=== PATIENT | female | born 1935 | race Caucasian/White ===

== ENCOUNTER 2018-01-20 21:39 | Inpatient (IN) | payer MEDICARE, OTHER ==
[~2018-01-20] VITALS: Ht 165.1 cm; Wt 63.5 kg
--- NOTE | ~2018-01-20 | CN ---
PATIENT NAME:CHIVO THOMPSON MEDICAL RECORD: [id number] : 37 LOCATION:[id number] ADMIT DATE: 01/20/18 ACCOUNT: [id number] CONSULTING PHYSICIAN: JOHNNIE KRISHNAMURTHY III, MD REFERRING PHYSICIAN: ELZBIETA MAYER MD DATE OF CONSULTATION: 01/23/2018 FINDINGS: An 82-year-old single white female admitted on the . The patient had acute urinary tract infection as well as altered mental status. The patient did have some dental work done approximately last week as well. She had some type of gingival infection, I believe. The patient has had workup for the urinary tract infection and is currently on antibiotics. However, the part did suffer an acute psychotic episode last night. She hallucinated visually (saw chickens in her room), became quite anxious and agitated. Prior to admission, the patient had begun showing cognitive changes according to a friend who was interviewed. The patient has been routinely misplacing things in her home. She has difficulty sometimes getting her car started and other similar problems. The patient does live by herself, which is a matter of some concern for the family. On exam today, the patient is very pleasant. She seems slightly anxious during the interview. Affect is generally well controlled. Speech tends to be a bit tangential. Content of thought is negative for acute psychosis at the moment, but the patient did have hallucinations last night as mentioned. She is oriented to person and place. She shows some deficits in terms of short term recall. Long-term recall is intact. DIAGNOSTIC IMPRESSION: AXIS I: Subacute delirium -- rule out early dementia. PLAN: 1. We will begin routine haloperidol 0.5 mg twice a day for control of acute psychosis. 2. Add Aricept 5 mg daily. 3. The patient at present is not inclined to be transferred to skilled nursing. However, we will remain open to the possibility if family persuades her to do so. TRANSINT:[id number] Voice Confirmation ID: [id number] DOCUMENT ID: [id number] JOHNNIE KRISHNAMURTHY III, MD at 0553 CC: [id number] DICTATION DATE: 01/23/18 1218 TARGETEER: 01/23/18 1225 [place] [address]
[~2018-01-20 21:39] MED LIST: ALEVE220 MG PO; BAYER CHEWABLE81 MG PO; CRESTOR20 MG PO; DETROL2 MG PO; REQUIP0.5 MG PO; SYNTHROID75 MCG PO
[2018-01-20 22:29] LABS: BASOPHILS 0.2 % (0-2); EOSINOPHILS 0.8 % (0-7); HEMATOCRIT 37.5 % (36.0-48.0); HEMOGLOBIN 12.5 g/dL (12-16); IMMATURE GRANULOCYTES 0.2 % (0-5); MCH 29.2 pg (26.0-34.0); MCHC 33.3 g/dL (31.0-37.0); MCV 87.6 fL (80.0-100.0); MEAN PLATELET VOLUME 11.5 fL (7.4-10.4); MONOCYTES 11.7 % (2-11); NEUTROPHILS 72.1 % (40-80); PLATELET COUNT 191 10x3/uL (130-400); RBC 4.28 10x6/uL (4.00-5.40); WBC 13.3 10x3/uL (4.8-10.8)
[2018-01-20 22:30] VITALS: BP 158/70
[2018-01-20 22:39] LABS: ALBUMIN 3.8 g/dL (3.4-5.0); BILIRUBIN - TOTAL 1.5 mg/dL (0.2-1.3); CARBON DIOXIDE 27.5 mmol/L (21.0-32.0); CREATININE - SERUM 1.1 mg/dL (0.6-1.3); POTASSIUM - SERUM 4.5 mmol/L (3.5-5.1); PROTEIN - SERUM 7.2 g/dL (6.4-8.2)
[2018-01-20 22:49] LABS: THYROID STIMULATING HORMONE 0.03 uIU/mL (0.36-3.74)
[2018-01-20 23:14] LABS: APPEARANCE CLEAR (CLEAR); BILIRUBIN NEGATIVE (NEGATIVE); COLOR YELLOW (YELLOW); GLUCOSE NEGATIVE (NEGATIVE); KETONE NEGATIVE (NEGATIVE); NITRITE NEGATIVE (NEGATIVE); PROTEIN NEGATIVE (NEGATIVE); SPECIFIC GRAVITY 1.015 (1.005-1.020); UROBILINOGEN NORMAL (NORMAL)
[2018-01-20 23:16] LABS: BACTERIA NONE SEEN /hpf (NONE SEEN); EPITHELIAL CELLS 0-5 /hpf (0-5); RED CELLS - URINE NONE SEEN /hpf (0-5); WHITE CELLS - URINE 0-5 /hpf (0-5)
[2018-01-20 23:18] LABS: UDS - AMPHET NEGATIVE QUAL (NEGATIVE); UDS - BARB NEGATIVE QUAL (NEGATIVE); UDS - BENZO NEGATIVE QUAL (NEGATIVE); UDS - COCAINE NEGATIVE QUAL (NEGATIVE); UDS - OPIATE NEGATIVE QUAL (NEGATIVE); UDS - PCP NEGATIVE QUAL (NEGATIVE); UDS - THC NEGATIVE QUAL (NEGATIVE)
[2018-01-20 23:35] VITALS: BP 169/70
[2018-01-20 23:56] LABS: T4 THYROXIN - FREE 0.99 ng/dL (0.76-1.46); T4 THYROXINE 8.2 ug/dL (4.7-13.3)
[2018-01-21] VITALS (8 sets, daily range): BP systolic 105–161; BP diastolic 43–99; Ht 165.1 cm; Wt 63.5 kg
[2018-01-21 11:08] LABS: BASOPHILS 0.2 % (0-2); EOSINOPHILS 1.5 % (0-7); HEMATOCRIT 38.3 % (36.0-48.0); HEMOGLOBIN 12.5 g/dL (12-16); IMMATURE GRANULOCYTES 0.1 % (0-5); LYMPHOCYTES 16.1 % (15-50); MCH 28.7 pg (26.0-34.0); MCHC 32.6 g/dL (31.0-37.0); MONOCYTES 10.7 % (2-11); NEUTROPHILS 71.4 % (40-80); PLATELET COUNT 158 10x3/uL (130-400); RBC 4.35 10x6/uL (4.00-5.40); WBC 11.1 10x3/uL (4.8-10.8)
[2018-01-21 11:38] LABS: ALBUMIN 3.3 g/dL (3.4-5.0); ANION GAP 11.2 mmol/L (8-16); BILIRUBIN - TOTAL 2.1 mg/dL (0.2-1.3); CALCIUM 8.6 mg/dL (8.5-10.1); CARBON DIOXIDE 26.5 mmol/L (21.0-32.0); CREATININE - SERUM 0.9 mg/dL (0.6-1.3); PROTEIN - SERUM 6.6 g/dL (6.4-8.2)
[2018-01-21 11:39] LABS: POTASSIUM - SERUM 3.7 mmol/L (3.5-5.1)
[2018-01-22 03:45] VITALS: BP 132/57
[2018-01-22 05:50] LABS: BASOPHILS 0.3 % (0-2); EOSINOPHILS 3.6 % (0-7); HEMATOCRIT 39.2 % (36.0-48.0); HEMOGLOBIN 12.9 g/dL (12-16); IMMATURE GRANULOCYTES 0.2 % (0-5); LYMPHOCYTES 28.2 % (15-50); MCHC 32.9 g/dL (31.0-37.0); MCV 88.1 fL (80.0-100.0); MEAN PLATELET VOLUME 12.3 fL (7.4-10.4); MONOCYTES 9.2 % (2-11); NEUTROPHILS 58.5 % (40-80); PLATELET COUNT 172 10x3/uL (130-400); RBC 4.45 10x6/uL (4.00-5.40); RDW 14.9 % (11.5-14.5); WBC 10.4 10x3/uL (4.8-10.8)
[2018-01-22 06:31] LABS: ALBUMIN 3.1 g/dL (3.4-5.0); ANION GAP 11.8 mmol/L (8-16); BILIRUBIN - TOTAL 1.42 mg/dL (0.2-1.3); CALCIUM 8.9 mg/dL (8.5-10.1); CARBON DIOXIDE 26.3 mmol/L (21.0-32.0); POTASSIUM - SERUM 4.1 mmol/L (3.5-5.1); PROTEIN - SERUM 6.7 g/dL (6.4-8.2)
[2018-01-22 08:52] VITALS: BP 114/57
[2018-01-22 12:22] VITALS: BP 122/84
[2018-01-22 15:51] VITALS: BP 145/84
[2018-01-22 20:00] VITALS: BP 1499/76
[2018-01-23 01:20] VITALS: BP 157/71
[2018-01-23 05:27] VITALS: BP 152/63
[2018-01-23 05:33] LABS: BASOPHILS 0.3 % (0-2); EOSINOPHILS 4.2 % (0-7); HEMATOCRIT 34.2 % (36.0-48.0); HEMOGLOBIN 11.4 g/dL (12-16); IMMATURE GRANULOCYTES 0.3 % (0-5); LYMPHOCYTES 24.2 % (15-50); MCH 28.6 pg (26.0-34.0); MCHC 33.3 g/dL (31.0-37.0); MEAN PLATELET VOLUME 11.7 fL (7.4-10.4); MONOCYTES 8.6 % (2-11); NEUTROPHILS 62.4 % (40-80); PLATELET COUNT 151 10x3/uL (130-400); RBC 3.99 10x6/uL (4.00-5.40); RDW 14.3 % (11.5-14.5)
[2018-01-23 05:34] LABS: MCV 85.7 fL (80.0-100.0)
[2018-01-23 05:43] LABS: ALBUMIN 2.8 g/dL (3.4-5.0); BILIRUBIN - TOTAL 0.75 mg/dL (0.2-1.3); CALCIUM 8.6 mg/dL (8.5-10.1); CARBON DIOXIDE 23.8 mmol/L (21.0-32.0); CREATININE - SERUM 0.9 mg/dL (0.6-1.3); POTASSIUM - SERUM 3.8 mmol/L (3.5-5.1); PROTEIN - SERUM 6.1 g/dL (6.4-8.2)
[2018-01-23 08:58] VITALS: BP 158/55
[2018-01-23 12:45] VITALS: BP 152/58; BP 158/55
[2018-01-23 16:46] VITALS: BP 101/77
[2018-01-23 20:00] VITALS: BP 125/73; BP 142/86
[2018-01-24 04:00] VITALS: BP 140/76
[2018-01-24 06:40] LABS: BASOPHILS 0.4 % (0-2); EOSINOPHILS 5.1 % (0-7); HEMOGLOBIN 12.5 g/dL (12-16); IMMATURE GRANULOCYTES 0.1 % (0-5); LYMPHOCYTES 32.2 % (15-50); MCH 28.7 pg (26.0-34.0); MCHC 32.9 g/dL (31.0-37.0); MCV 87.4 fL (80.0-100.0); MEAN PLATELET VOLUME 11.9 fL (7.4-10.4); MONOCYTES 6.8 % (2-11); NEUTROPHILS 55.4 % (40-80); RBC 4.35 10x6/uL (4.00-5.40); RDW 14.4 % (11.5-14.5); WBC 9.7 10x3/uL (4.8-10.8)
[2018-01-24 06:57] LABS: PLATELET COUNT 196 10x3/uL (130-400)
[2018-01-24 06:59] LABS: ALBUMIN 3.5 g/dL (3.4-5.0); ANION GAP 12.1 mmol/L (8-16); BILIRUBIN - TOTAL 0.72 mg/dL (0.2-1.3); CALCIUM 9.1 mg/dL (8.5-10.1); CARBON DIOXIDE 26.8 mmol/L (21.0-32.0); CREATININE - SERUM 0.9 mg/dL (0.6-1.3); POTASSIUM - SERUM 3.9 mmol/L (3.5-5.1); PROTEIN - SERUM 6.8 g/dL (6.4-8.2)
[2018-01-24 08:45] VITALS: BP 160/61
[2018-01-24] MEDS ORDERED: ARICEPT5 MG PO (11:12)
[2018-01-24] MEDS ORDERED: HALOPERIDOL1 MG PO (11:13)
[2018-01-24] MEDS ORDERED: CIPRO500 MG PO (11:13)
[2018-01-24] MEDS ORDERED: FLORAJEN3 CAPS460 MG PO (11:13)
== END 2018-01-24 18:03 | disposition home or self-care (01) | DRG 205 ==
LOC: D.ER 21:39 → D.EDHOLD 23:49 → D.MS 23:49
PROVIDERS: Emergency Medicine
DX: J22 Unspecified acute lower respiratory infection (principal); G93.41 Metabolic encephalopathy; F05 Delirium due to known physiological condition; R09.02 Hypoxemia; Z99.81 Dependence on supplemental oxygen; J44.9 Chronic obstructive pulmonary disease, unspecified; R50.9 Fever, unspecified

== ENCOUNTER → 2018-06-25 12:29 | Outpatient (CLI) | payer MEDICARE, OTHER ==
[2018-01-21 15:26] VITALS: BMI 23.2
[~2018-06-25 12:29] MED LIST changes: +ARICEPT5 MG PO; +CIPRO500 MG PO; +FLORAJEN3 CAPS460 MG PO; +HALOPERIDOL1 MG PO
== END | disposition home or self-care (01) ==
LOC: D.CT 12:29
DX: R93.89 Abnormal findings on diagnostic imaging of other specified body structures (principal)